=== PATIENT | male | born 2000 | race Caucasian/White ===

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

== ENCOUNTER 2023-02-16 18:46 | Emergency (ER) | payer OTHER ==
[~2023-02-16] VITALS: Ht 182.9 cm; Wt 158.8 kg
[2023-02-16] MEDS ORDERED: Percocet 5-3251 EACH PO (20:11)
[2023-02-16] MEDS ORDERED: IBUP400 PO (20:11)
[2023-02-16 20:50] VITALS: BP 130/75
== END 2023-02-16 20:40 | disposition home or self-care (01) ==
LOC: ER 18:46
DX: S82.841A Displaced bimalleolar fracture of right lower leg, initial encounter for closed fracture (principal); Z23 Encounter for immunization; V89.2XXA Person injured in unspecified motor-vehicle accident, traffic, initial encounter
CPT/HCPCS: 27810; 73590; 73610; 76000; 90714; 90715; 96374-59; 99152; 99284-25; A9270; J2405; J2704; J7030

== ENCOUNTER 2023-02-20 16:35 | Emergency (ER) | payer OTHER ==
[~2023-02-20] VITALS: Ht 188 cm; Wt 136.1 kg
[~2023-02-20 16:35] MED LIST changes: +IBUP400 PO; +Percocet 5-3251 EACH PO
[2023-02-20 16:38] VITALS: BP 148/98
== END 2023-02-20 17:55 | disposition home or self-care (01) ==
LOC: ER 16:35
DX: Z46.89 Encounter for fitting and adjustment of other specified devices (principal); Z79.1 Long term (current) use of non-steroidal anti-inflammatories (NSAID); Z79.899 Other long term (current) drug therapy
CPT/HCPCS: 29515; 99282-25